=== PATIENT | male | born 1980 | race Caucasian/White ===

== ENCOUNTER → 2020-09-28 | Outpatient (CLI) | payer BC, OTHER | LOC: HEART 5 11:30 | DX: R07.89 Other chest pain (principal) ==

== ENCOUNTER → 2021-01-31 | Outpatient (CLI) | payer BC, OTHER | LOC: HEART 5 14:11 | DX: I47.1 Supraventricular tachycardia (principal); I49.5 Sick sinus syndrome; I27.20 Pulmonary hypertension, unspecified; I07.1 Rheumatic tricuspid insufficiency; Z95.0 Presence of cardiac pacemaker | CPT/HCPCS: 93306 ==

== ENCOUNTER → 2021-05-10 | Outpatient (CLI) | payer BC | LOC: HEART 5 14:28 | DX: R06.02 Shortness of breath (principal) | CPT/HCPCS: 94010 ==

== ENCOUNTER → 2021-06-07 | Outpatient (CLI) | payer BC | LOC: SLEEP 14:05 | DX: G47.33 Obstructive sleep apnea (adult) (pediatric) (principal) | CPT/HCPCS: 95810 ==